=== PATIENT | female | born 1995 | race African-American/Black ===

== ENCOUNTER 2018-09-27 11:50 | Emergency (ER) | payer SELFPAY ==
[~2018-09-27] VITALS: Ht 152.4 cm; Wt 79.5 kg
[2018-09-27 11:57] VITALS: Ht 152.4 cm; Wt 79.5 kg
[2018-09-27 13:45] VITALS: BP 125/67
== END 2018-09-27 13:45 | disposition home or self-care (01) ==
LOC: D.ER 11:50
DX: J02.9 Acute pharyngitis, unspecified (principal)